=== PATIENT | male | born 1970 | race Caucasian/White ===

== ENCOUNTER 2017-09-27 14:52 | Inpatient (IN) | payer OTHER ==
[~2017-09-27] VITALS: Ht 177.8 cm; Wt 81.3 kg
[~2017-09-27 14:52] MED LIST: AMLO10TA PO; CLON0.1T42 PO; FURO-570 PO; GABA300C PO; HYDR-3638 PO; LANTUS SUBQ; METO5SOL19 PO; NITR0.4T2 SL; PANT40EC PO; TRAM50TA1 PO
[2017-09-27 15:05] VITALS: BP 184/107
--- NOTE | 2017-09-27 15:24 | NUR ---
PATIENT BIBA TO BED 10
[2017-09-27] MEDS ORDERED: NACL 0.9% 500 ML IV ONE (15:25)
--- NOTE | 2017-09-27 15:39 | NUR ---
PATIENT PRESENTS TO ED WITH THE CHIEF C/O OFEPISODE OF SYNCOPE, NAUSEA NAD VOMITING . . DENIES N/V/D AT THIS TIME; SKIN IS PINK/WARM/DRY; AAOX4 WITH EVEN AND STEADY GAIT; HR EVEN AND REGULAR; PT HAS TEM[ERATURE OF 100.3 DEGREE F. DENIES CP, OR COUGH AT THIS TIME; PATIENT STATES PAIN OF 0/10 AT THIS TIME; PATIENT POSITIONED FOR COMFORT; HOB ELEVATED; BEDRAILS UP X2; BED DOWN. ER MD MADE AWARE OF PT STATUS.
--- NOTE | 2017-09-27 15:42 | NUR ---
CHEST X RAY DONE.
[2017-09-27] MEDS ORDERED: DILTIAZEM 25 MG/5 ML VIAL IVP ONE (15:50)
--- NOTE | 2017-09-27 16:03 | NUR ---
LABS AT BEDSIDE FOR BLOOD DRAW.
[2017-09-27] MEDS ORDERED: ACETAMINOPHEN EXTRA STRENGTH 500 MG TAB PO ONE (16:20)
[2017-09-27 16:21] LABS: BASOPHILS # (AUTO) 0.1 K/uL (0.00-0.22); BASOPHILS % (AUTO) 0.7 % (0.0-2.0); EOSINOPHILS # (AUTO) 0.1 K/uL (0-0.4); EOSINOPHILS % (AUTO) 0.7 % (0.0-4.0); HEMATOCRIT 40.7 % (36-52); LYMPHOCYTES # (AUTO) 0.7 K/uL (2.0-11.5); LYMPHOCYTES % (AUTO) 4.9 % (20.5-51.1); MEAN CORPUSCULAR HEMOGLOBIN 28 pg (27-31); MEAN CORPUSCULAR HGB CONC 32 g/dL (33-37); MEAN CORPUSCULAR VOLUME 87 fL (80-94); MONOCYTES % (AUTO) 7.1 % (1.7-9.3); NEUTROPHILS # (AUTO) 12.8 K/uL (1.8-7.7); NEUTROPHILS % (AUTO) 86.6 % (42.2-75.2); PLATELET COUNT (AUTO) 369 K/uL (140-450); RED BLOOD CELL COUNT(AUTO) 4.68 MIL/uL (4.20-6.10); RED CELL DISTRIBUTION WIDTH 15.6 % (11.6-13.7); WHITE BLOOD COUNT (AUTO) 14.7 K/uL (4.8-10.8)
[2017-09-27 16:32] LABS: ALBUMIN 3.7 g/dL (3.4-5.0); ANION GAP 23.2 (8-16); CARBON DIOXIDE 27.2 mmol/L (21-32); TOTAL BILIRUBIN 0.9 mg/dL (0.0-1.0)
[2017-09-27 16:35] LABS: POTASSIUM 6.4 mmol/L (3.5-5.1)
[2017-09-27 16:36] LABS: CREATININE 10.7 mg/dL (0.7-1.3)
[2017-09-27] MEDS: PIPERACILLIN/TAZOBACTAM 3.375 GM in DEXTROSE 5% 50 ML IV ONE ×2 (16:45→18:08)
[2017-09-27] MEDS ORDERED: DEXTROSE 50% 50 ML SYR IVP ONE (16:45)
[2017-09-27] MEDS ORDERED: SODIUM POLYSTYRENE 15 GM/60 ML UDBTL PO ONE (16:45)
[2017-09-27] MEDS ORDERED: ALBUTEROL 0.083% 2.5 MG/3 ML NEBU INH ONE (16:45)
[2017-09-27] MEDS ORDERED: VANCOMYCIN 1,000 MG in DEXTROSE 5% 250 ML IV ONE (16:45)
[2017-09-27] MEDS ORDERED: INSULIN REGULAR, HUMAN 100 UNIT/ML VIAL SUBQ ONE (16:45)
[2017-09-27] MEDS ORDERED: VANCOMYCIN 1,000 MG VIAL ONE (16:49)
[2017-09-27] MEDS ORDERED: PIPERACILLIN/TAZOBACTAM 3.375 GM VIAL IV ONE (16:49)
[2017-09-27] MEDS ORDERED: ACETAMINOPHEN 325 MG TAB PO PRN (17:00)
[2017-09-27] MEDS ORDERED: HYDROcodone/APAP 7.5/325 MG 1 TAB PO PRN (17:00)
[2017-09-27] MEDS ORDERED: MORPHINE SULFATE 2 MG/ML SYR IVP PRN (17:00)
[2017-09-27] MEDS ORDERED: DOCUSATE SODIUM 100 MG GELCAP PO PRN (17:00)
[2017-09-27] MEDS ORDERED: ONDANSETRON 4 MG/2 ML VIAL IM/IVP PRN (17:00)
--- NOTE | 2017-09-27 17:04 | NUR ---
TX ADMINISTERED. PT TOLERATED TX WELL. NO ADVERSE SIDE EFFECTS.
--- NOTE | 2017-09-27 17:25 | NUR ---
RT AT BEDSIDE ATTEMPTING TO COLLECT ABG---HHN HAS BEEN COMPLETED
--- NOTE | 2017-09-27 17:27 | NUR ---
PT IS REQUESTING TO ALLOW TO MICTURATE BEFORE ATTEMPING STRAIGHT CATH
[2017-09-27] MEDS ORDERED: SEVE0.8P PO (17:34)
[2017-09-27] MEDS ORDERED: CLOP75TA26 PO (17:34)
[2017-09-27] MEDS ORDERED: LOSA100T1 PO (17:34)
[2017-09-27] MEDS ORDERED: ASPI81EC98 PO (17:34)
[2017-09-27] MEDS ORDERED: LON2.5 PO (17:34)
[2017-09-27] MEDS ORDERED: ALBU0.0912 IH (17:34)
[2017-09-27] MEDS ORDERED: CARV25TA PO (17:34)
[2017-09-27] MEDS ORDERED: ATOR40TA40 PO (17:34)
[2017-09-27] MEDS ORDERED: FLUO10CA21 PO (17:34)
--- NOTE | 2017-09-27 17:35 | NUR ---
RESULTS GIVEN TO DR. ERICKSON NO CHANGES MADE AT THIS TIME.
[2017-09-27] MEDS ORDERED: NACL 0.9% 500 ML IV SCH (17:40)
[2017-09-27 17:49] LABS: APPEARANCE,URINE CLEAR (CLEAR); BILIRUBIN,URINE NEGATIVE (NEGATIVE); BLOOD, URINE 1+ (NEGATIVE); COLOR,URINE YELLOW (YELLOW); LEUKOCYTE ESTERASE ,URINE NEGATIVE (NEGATIVE); NITRITE, URINE NEGATIVE (NEGATIVE); PH,URINE 7.5 (5.0-9.0); UGLUCOSE 2+ (NEGATIVE)
[2017-09-27 18:00] VITALS: BP 136/91
[2017-09-27] MEDS ORDERED: NITROGLYCERIN 0.4 MG TAB SL PRN (18:00)
--- NOTE | 2017-09-27 18:01 | NUR ---
Pt report given to JAMES GOODMAN. Transfer of care at this timE TO ICU RM 2
--- NOTE | 2017-09-27 18:01 | NUR ---
ADMITTED PATIENT FROM ED PER IVET. REPORT GIVEN BY ED RN. PATIENT IS AAOX4. ABLE TO FOLLOW COMMANDS. SKIN WARM TO TOUCH WNL, MULTIPLE OPEN WOUNDS TO LEFT MEDIAL MALLEOLAR, RLE AND R HALLUX, NO COMPLAINTS OF PAIN MADE DURING ASSESSMENT. PICTURES OBTAINED AND PLACED IN CHART. RAC G20 PERIPHERAL IV, PATENT AND INTACT. URINE AND BOWEL CONTINENT, ABLE TO MAKE HIS NEEDS KNOWN. LEFT ARM AV SHUNT NOTED. BED AT LOWEST POSSIBLE POSITION. MRSA SCREEN COLLECTED. CALL LIGHT WITHIN REACH. SAFETY MEASURES IN PLACE. WILL CONTINUE TO MONITOR PATIENT.
[2017-09-27 18:02] LABS: BARBITURATE, URINE NEG. ng/ml (NEG <=200); BENZODIAZEPINE, URINE NEG. ng/mL (NEG <=200); CANNABINOID, URINE NEG. ng/mL (NEG <=50); COCAINE, URINE NEG. ng/mL (NEG <=300); OPIATE, URINE NEG. ng/mL (NEG <=2000); PHENCYCLIDINE SCREEN,URINE NEG. ng/mL (NEG <=25)
[2017-09-27 18:03] LABS: RBC,URINE 0-5 (RARE) /HPF (0-5); WBC,URINE 0-5 (RARE) /HPF (0-5)
[2017-09-27] MEDS ORDERED: VANCOMYCIN 1GM/DEXT 5% PREMIX 200 ML IV SCH (18:05)
--- NOTE | 2017-09-27 18:05 | NUR ---
UA COLLECTED AND SENT TO LAB
[2017-09-27 18:12] LABS: PROTHROMBIN TIME 11.3 secs (10.8-13.4)
[2017-09-27 18:21] LABS: CHOL/HDL RATIO 4.1 (1-4.5); FREE T4 (FREE THYROXINE) 1.18 ng/dL (0.76-1.46); MAGNESIUM 2.5 mg/dL (1.8-2.4); PHOSPHORUS 7.9 mg/dL (2.5-4.9); THYROID STIMULATING HORMONE 1.31 uIU/mL (0.34-3.74)
[2017-09-27] MEDS ORDERED: INSULIN LISPRO SLIDING SCALE 100 UNITS/ML VIAL SUBQ PRN (18:25)
--- NOTE | 2017-09-27 19:30 | NUR ---
CALLED ROBERT ORTIZ TO FOLLOW UP DIALYSIS, ROBERT SAID THAT THE NURSE IS IN [place] RIGHT NOW AND SHE WILL BE HERE SOON SHE'S DONE THERE.
--- NOTE | 2017-09-27 19:30 | NUR ---
RECEIVED REPORT FROM MORNING NURSE, PT IS AWAKE, AAOX4, VERBALLY RESPONSIVE, ABLE TO MAKE NEEDS KNOWN. PT ON O2 AT 6L/M VIA NC WITH O2 SAT 99% NOTED. BILATERAL LUNG SOUND DIMINISHED NOTED. PERIPHERAL LINE TO RIGHT AC 20 WITH NS 15ML/HR. LEFT UPPER ARM AV SHUNT NOTED. MULTIPLE ULCERS TO LEFT MEDIAL MALLEOLAR, RLE AND R HALLUX. DENIES PAIN AT THIS TIME. BED AT LOWEST POSSIBLE POSITION. CALL LIGHT WITHIN REACH. SAFETY MEASURES IN PLACE. WILL CONTINUE TO MONITOR PATIENT.
[2017-09-27 20:00] VITALS: BP 163/106
[2017-09-27] MEDS ORDERED: LORazepam 2 MG/ML VIAL IM/IVP PRN (20:10)
--- NOTE | 2017-09-27 20:10 | NUR ---
PT' FAMILY MEMBERS AT BEDSIDE, FAMILY MEMBERS REPORTED TO THE NURSE PT GETTING ANXIOUS AND RESTLESSNESS. NOTIFIED TO DR. ANDERSON, RECEIVED ATIVAN ORDER.
[2017-09-27] MEDS: BLOOD GLUCOSE MONITORING 1 DEV DEV FS SCH (20:43)
[2017-09-27] MEDS ORDERED: METOCLOPRAMIDE 10 MG/10 ML SYRP UDC PO PRN ×2 (21:00)
[2017-09-27] MEDS ORDERED: METOCLOPRAMIDE 10 MG/10 ML SYRP UDC PO SCH (21:00)
[2017-09-27] MEDS ORDERED: PIPERACILLIN/TAZOBACTAM 2.25 GM in DEXTROSE 5% 50 ML IV SCH (21:00)
--- NOTE | 2017-09-27 21:33 | NUR ---
CALLED ROBERT ORTIZ, FOLLOW UP WHAT TIME IS DIALYSIS NURSE BE HERE, ROBERT SAID THAT SHE WILL CALL ME BACK.
--- NOTE | 2017-09-27 21:40 | NUR ---
HEMODIALYSIS NURSE AT BEDSIDE, DIALYSIS STARTED AT THIS TIME. BP 152/91 NOTED, NO ACUTE DISTRESS NOTED. WILL CONTINUE TO MONITOR.
[2017-09-27 22:00] VITALS: BP 185/113
[2017-09-28] VITALS (13 sets, daily range): BP systolic 86–165; BP diastolic 48–132
--- NOTE | 2017-09-28 01:10 | NUR ---
RECEIVED REPORT FROM DIALYSIS NURSE, 3.3L OF FLUID REMOVED FROM THE PT. HYPERTENSIVE. WILL GIVE MEDICATIONS.
--- NOTE | 2017-09-28 02:00 | NUR ---
ADMINISTERED SCHEDULED MEDICATION, PT TOLERATED WELL. SR ON THE MONITOR. WILL CONTINUE TO MONITOR.
[2017-09-28] MEDS: cloNIDine 0.1 MG TAB PO SCH ×2 (02:04→08:25)
[2017-09-28] MEDS: CARVEDILOL 12.5 MG TAB PO SCH ×2 (02:04→08:26)
[2017-09-28] MEDS: hydrALAZINE 25 MG TAB PO SCH ×2 (02:05→08:26)
--- NOTE | 2017-09-28 04:20 | NUR ---
CT HEAD W/O CONTRAST TAKEN FROM CT ROOM, PT TOLERATED WELL. NO ACUTE DISTRESS NOTED DURING THE PROCEDURE. WILL FOLLOW UP THE RESULT.
--- NOTE | 2017-09-28 06:10 | NUR ---
PT IS IN ASLEEP, AROUSABLE TO VOICE. NO ACUTE DISTRESS NOTED. SR ON THE MONITOR. DENIES PAIN. WILL CONTINUE TO MONITOR.
[2017-09-28 06:21] LABS: T4 (THYROXINE) 7.7 ug/dL (4.5-12.0)
[2017-09-28 06:24] LABS: BASOPHILS # (AUTO) 0.1 K/uL (0.00-0.22); BASOPHILS % (AUTO) 1.8 % (0.0-2.0); EOSINOPHILS # (AUTO) 0.1 K/uL (0-0.4); EOSINOPHILS % (AUTO) 1.8 % (0.0-4.0); HEMATOCRIT 35.3 % (36-52); HEMOGLOBIN 11.5 g/dL (12.0-18.0); LYMPHOCYTES # (AUTO) 0.9 K/uL (2.0-11.5); LYMPHOCYTES % (AUTO) 10.6 % (20.5-51.1); MEAN CORPUSCULAR HEMOGLOBIN 28 pg (27-31); MEAN CORPUSCULAR HGB CONC 33 g/dL (33-37); MEAN CORPUSCULAR VOLUME 86 fL (80-94); MONOCYTES # (AUTO) 0.9 K/uL (0.8-1.0); NEUTROPHILS % (AUTO) 74.8 % (42.2-75.2); PLATELET COUNT (AUTO) 268 K/uL (140-450); RED BLOOD CELL COUNT(AUTO) 4.09 MIL/uL (4.20-6.10); RED CELL DISTRIBUTION WIDTH 15.6 % (11.6-13.7)
[2017-09-28] MEDS: BLOOD GLUCOSE MONITORING 1 DEV DEV FS SCH ×3 (07:00→15:11)
[2017-09-28 07:08] LABS: PROTHROMBIN TIME 12.6 secs (10.8-13.4)
[2017-09-28 07:15] LABS: ANION GAP 14.7 (8-16); POTASSIUM 3.7 mmol/L (3.5-5.1)
--- NOTE | 2017-09-28 07:20 | NUR ---
RECEIVED A REPORT FROM MAXINE SOTOMAYOR. PATIENT IS AAOX4. DENIES ANY PAIN OR DISCOMFORT AT THIS TIME. RESPIRATION ARE EVEN AND UNLABORED. ON ROOM AIR. SKIN WARM TO TOUCH. PERIPHERAL IV LINE TO RT AC AND PATENT&INTACT. MULTIPLE SKIN LESION TO BILATERAL UPPER/LOWER EXTREMITIES. SINUS RHYTHM ON THE MONITOR. SAFETY PRECAUTION, BED IN LOW POSITION, CALL LIGHT WITHIN REACH. WILL CONTINUE TO MONITOR. Addendum: 09/28/17 at 0855 by Luis Fernando Espino RN ADDITIONAL DOCUMENTATION OF INITIAL ASSESSMENT TO AV SHUNT TO LEFT ARM. BRUIT AND THRILL NOTED. Addendum: 09/28/17 at 0951 by Luis Fernando Espino RN CORRECTION OF DOCUMENTATION TO PATIENT IS ON O2 2L/MIN VIA N/C.
[2017-09-28 07:24] LABS: CREATININE 6.3 mg/dL (0.7-1.3)
--- NOTE | 2017-09-28 07:30 | NUR ---
REPORT GIVEN TO MORNING RN.
[2017-09-28 07:32] LABS: ALBUMIN 3.2 g/dL (3.4-5.0); ANION GAP 16.4 (8-16); ASPARTATE AMINOTRANSFERASE 15 U/L (15-37); CARBON DIOXIDE 30.4 mmol/L (21-32); CHLORIDE 95 mmol/L (98-107); GFR ARICAN-AMERICAN 12 mL/min (>90); GLUCOSE 135 mg/dL (74-106); LIPASE 463 U/L (73-393); MAGNESIUM 2.1 mg/dL (1.8-2.4); POTASSIUM 3.8 mmol/L (3.5-5.1); SODIUM SERUM 138 mmol/L (136-145); UREA NITROGEN, BLOOD 44 mg/dL (7-18)
--- NOTE | 2017-09-28 07:40 | NUR ---
RESIDENT GROUP IN TO SEE PATIENT AND MADE AWARE OF ABNORMAL LAB RESULT INCLUDING CREATININE LEVEL. WILL CONTINUE TO MONITOR AND FOLLOW UP ON ORDERS.
[2017-09-28 07:55] LABS: CREATININE 6.3 mg/dL (0.7-1.3)
--- NOTE | 2017-09-28 08:00 | NUR ---
PATIENT IS ON NPO EXCEPT MEDICATION AND CLARIFIED ALL MEDICATION INCLUDING INSULIN TO BE GIVEN WITH DR. SOTO. WILL CONTINUE TO MONITOR AND FOLLOW UP ON ORDERS.
[2017-09-28] MEDS: GABAPENTIN 300 MG CAP PO SCH ×3 (08:27→16:42)
--- NOTE | 2017-09-28 08:40 | NUR ---
PATIENT IS ON ECHOCARDIOGRAM AT BEDSIDE. WILL CONTINUE TO MONITOR.
[2017-09-28 08:57] LABS: HEPATITIS A ANTIBODY IGM Negative (Negative); HEPATITIS B CORE AB TOTAL Negative (Negative); HEPATITIS B SURFACE ANTIBODY Reactive (.); HEPATITIS B SURFACE ANTIGEN Negative (Negative)
[2017-09-28] MEDS ORDERED: BACITRACIN ZINC/POLYMYXIN B OINT 30 GM TUBE TP SCH ×2 (09:00→21:00)
[2017-09-28] MEDS ORDERED: FLUoxetine 10 MG CAP PO SCH (09:00)
[2017-09-28] MEDS ORDERED: CLOPIDOGREL 75 MG TAB PO SCH ×2 (09:00)
[2017-09-28] MEDS ORDERED: FUROSEMIDE 40 MG TAB PO SCH (09:00)
[2017-09-28] MEDS ORDERED: MINOXIDIL 2.5 MG TAB PO SCH (09:00)
[2017-09-28] MEDS ORDERED: PIPER/TAZO 2.25GM/D5W PREMIX 50 ML IV SCH (09:00)
[2017-09-28] MEDS ORDERED: INSULIN LANTUS 100 UNITS/ML 10 ML VIAL SUBQ SCH ×2 (09:00→17:00)
[2017-09-28] MEDS ORDERED: ECOTRIN 81 MG TABEC PO SCH (09:00)
[2017-09-28] MEDS ORDERED: amLODIPine 5 MG TAB PO SCH (09:00)
[2017-09-28] MEDS ORDERED: PANTOPRAZOLE 40 MG TABEC PO SCH (09:00)
--- NOTE | 2017-09-28 10:32 | NUR ---
PATIENT HAS BEEN SCREENED AND CATEGORIZED HIGH NUTRITION RISK. PATIENT WILL BE SEEN WITHIN 1-2 DAYS OF ADMISSION. 09/28/17 - 09/29/[address]
[2017-09-28] MEDS: ATORVASTATIN 80 MG TAB PO SCH ×2 (10:54→11:19)
--- NOTE | 2017-09-28 11:12 | NUR ---
DR. BURKS AND DR. SOTO IN TO SEE PATIENT AND PATEINT NOTED BP 87/55. DR. BURKS STATED THAT BECAUSE PATIENT WAS TAKEN MULTIPLE BP MEDICATIONS IN THE MORNING AND CONTINUE TO MONITOR AT THIS TIME. PATIENT'S MOTHER AND DAUGHTER AT BEDSIDE.
[2017-09-28] MEDS ORDERED: HEPARIN PER PHARMACY MC PRN (11:20)
--- NOTE | 2017-09-28 11:20 | NUR ---
EKG DONE AT BEDSIDE BY RT AND NOTED SINUS RHYTHM WITH PAC AND DR. BURKS AWARE OF IT. WILL FOLLOW UP ON ORDERS.
[2017-09-28] MEDS ORDERED: hePARIN / DEXT 5% PREMIX 250 ML IV SCH (11:25)
[2017-09-28] MEDS ORDERED: DEXTROSE 50% 50 ML SYR IVP ONE (11:36)
--- NOTE | 2017-09-28 11:42 | NUR ---
BLOOD SUGAR NOTED 48 AND PT IS LETHARGIC AT THIS TIME. DR. SOTO IN TO SEE AND D50% 50ML IV GIVEN ORDERED.
--- NOTE | 2017-09-28 11:58 | NUR ---
RECHECKED BLOOD SUGAR 151 , BP 86/52 NOTED HOWEVER PATIENT IS STILL LETHARGIC AND UNABLE TO GIVE LIPITOR SCHEDULED MEDICATION AT THIS TIME. DR. SOTO AWARE OF IT. FAMILY STILL AT BEDSIDE AND GIVEN AN UPDATE BY DR. SOTO ABOUT PATIENT'S CONDITION. HEPARIN IV DRIP STARTED ORDERED AND WILL FOLLOW UP ORDERS.
--- NOTE | 2017-09-28 12:15 | NUR ---
FAXED INITIAL REVIEW TO [facility] [phone] PHONE ALHAJI ElizondoAlfredo [phone]. CALLED NEISHA EARLIER AND SPOKE WITH RICA AND SHE INFORMED ME THAT CM WILL BE ALHAJI Elizondo. RECEIVED AN ORDER FROM DR. SOTO THAT THIS PATIENT NEEDED TRANSFER TO [facility]. I CALLED NEISHA AND LEFT A MESSAGE WITH ALHAJI.' I CALLED NANCY, FROM [facility], RUG CLEANER HELPER. AT [phone]. SHE SAID TO TRY ANY FACILITY AND SHE WOULD DO THE AUTH. I CALLED [facility] AND SPOKE WITH NAYA AND GAVE HIM THE INFORMATION. HE PUT ME TO EILAN ,COORDINATOR, AND SHE SAID THAT THE HOSPITALIST TODAY WAS DR MANE,[phone] AND THAT OUR DRAlfredo NEEDED TO CALL HIM. I GAVE THE PHONE NUMBER TO DR. SOTO. ELIAN TOLD ME CALL THE TAKER AWAY, SYD, [phone]. SHE SAID SHE WOULD BE ABLE TO MAKE A BED FOR THIS PATIENT AFTER RECEIVING THE ACCEPTING PHYSICIAN. SHE SAID TO FAX DEMOGRAFICS TO ADMITTING AT [phone]. SENT FACE SHEET, H&P AND FACE SHEET.
--- NOTE | 2017-09-28 12:30 | NUR ---
WOUND CARE EVALUATION NOTE REASON FOR EVALUATION: BLE LESIONS COMPLETE SKIN ASSESSMENT DONE ON ON THIS 47 Y/O MALE ADMITTED TO [facility] AFTER AN ACUTE SYNCOPAL EPISODE. PAST MEDICAL HX INCLUDE ESRD, DM, AND HTN. ALL ABOVE INFORMATION WAS OBTAINED FROM THE ADMISSION H&P. PATIENT IS LETHARGIC AT THIS TIME AND IS UNABLE TO PROVIDE HX. PATIENT'S DAUGHTER PRESENT AT BEDSIDE. PER PATIENT'S DAUGHTER, PATIENT COMPLAINS OF ITCHINESS IN HIS LOWER EXTREMITIES AND WOULD SCRATCH THEM. MULTIPLE DRY SCABS NOTED TO BLE. PATIENT HAS HX OF LEFT BIG TOE AMPUTATION. LACERATION NOTED TO THE RIGHT BIG TOE WITH UNKNOWN ORIGIN. DRY SKIN NOTED TO BLE, NO HAIR GROWTH WITH BILATERAL PEDAL PULSES PRESENT. PATIENT NEEDS MAX ASSISTANCE WITH TURNING AT THIS TIME. INITIAL PLAN OF CARE AND PRESSURE PREVENTATIVE MEASURES DISCUSSED WITH PRIMARY RN. INTEGUMENTARY: LEFT HAND SKIN TEAR WITH SCANT DRAINAGE WITH MEASUREMENTS 1CM X 1CM X 0.1 CM RIGHT BIG TOE WOUND WITH MEASUREMENTS 0.8CM X 2.5CM X 0.2CM WOUND BED RED WITH SCAN SANGUINOUS DRAINAGE RECOMMENDATIONS: - COVER LEFT HAND SKIN TEAR WITH VERSATEL. CHANGE Q7DAYS AND PRN - CLEANSE BLE WITH MILD SOAP AND WATER, PAT DRY, APPLY HYDRAGUARD BID AND PRN WITH SOILING. LEAVE OPEN TO AIR - CLEANSE RIGHT BIG TOE WOUND WITH NS, PAT DRY. APPLY SKINTEGRITY HYDROGEL. COVER WITH OPTIFOAM OR STRATOSORB DRESSING. CHANGE DRESSING Q3DAYS AND PRN WITH SOILING - TURN AND REPOSITION PATIENT Q2H - OFFLOAD BILATERAL HEELS - KEEP SKIN CLEAN AND DRY AT ALL TIMES RECOMMENDATIONS DISCUSSED WITH PRIMARY RN WILL FOLLOW UP PATIENT Q 7 -10 DAYS AND PRN. PLEASE CONTACT WOUND CARE NURSE FOR ANY CONCERNS AND CHANGE IN WOUND CONDITION
--- NOTE | 2017-09-28 12:52 | NUR ---
PATIENT IS STILL LETHARGIC AND UNABLE TO FOLLOW COMMANDS. HOLD PO MEDICATION AT THIS TIME AND DR. SOTO AWARE OF IT.
[2017-09-28 12:57] LABS: PROTHROMBIN TIME 12.3 secs (10.8-13.4)
--- NOTE | 2017-09-28 12:58 | NUR ---
RECEIVED A CALL FROM ALHAJI FROM [facility]. THE AUTH FOR [facility] IS [id number]. THE AUTH FOR TRANSPORT IS THE SAME .
--- NOTE | 2017-09-28 13:16 | NUR ---
RECEIVED CRITICAL PTT RESULT 122.[address] SOTO AWARE OF IT[address] VERIFIED THE DOSE OF HEPARIN DRIP WITH PHARMACIST PER PROTOCOL ORDERED AND PHARMACIST STATED THAT CONTINUE WITH CURRENT RATE OF HEPARIN DRIP AT THIS TIME AND REPEAT PTT LAB TEST AT 1800. WILL CONTINUE TO MONITOR AND FOLLOW UP ON ORDERS.
--- NOTE | 2017-09-28 13:18 | NUR ---
DAUGHTER AND MOTHER OF PATIENT AT BEDSIDE.
--- NOTE | 2017-09-28 13:19 | NUR ---
CALLED [facility] AND SPOKE WITH ODALIS, [phone]. NO BEDS.
--- NOTE | 2017-09-28 13:27 | NUR ---
RECEIVED CRITICAL LAB RESULT TROPONIN LEVEL 0.[address] BRITTANY HUNT.
--- NOTE | 2017-09-28 14:00 | NUR ---
PATIENT RETURNED FROM CT SCAN OF HEAD AND DR. SIDHU IN TO SEE PATIENT. WILL FOLLOW UP ON ORDERS.
[2017-09-28 14:33] LABS: PROTHROMBIN TIME 12.1 secs (10.8-13.4)
--- NOTE | 2017-09-28 14:38 | NUR ---
INSERTED CENTRAL LINE TO RT IJ TRIPLE LUMEN BY DR. SOTO AT BEDSIDE AND IT WAS SUCCESSFUL. CXR IN HERE TO VERIFY CENTRAL LINE PLACEMENT. DR. LIMON, NEPHRO IN TO SEE PATIENT. WILL FOLLOW UP ON ORDERS.
[2017-09-28] MEDS: DEXTROSE 50% 50 ML SYR IVP PRN ×2 (15:10→17:30)
--- NOTE | 2017-09-28 15:10 | NUR ---
PT'S BLOOD SUGAR 18. DR. LIMON AND DR. SOTO IN THE ICU AND MADE AWARE. ORDER RECEIVED.
--- NOTE | 2017-09-28 15:11 | NUR ---
2 AMPS OF 50% DEXTROSE GIVEN ORDERED BY IN THE UNIT.
--- NOTE | 2017-09-28 15:20 | NUR ---
RECHECKED BLOOD SUGAR 217. PT IS STILL LETHARGIC AT THIS TIME. FAMILY AT BEDSIDE. WILL CONTINUE TO MONITOR.
--- NOTE | 2017-09-28 15:36 | NUR ---
BP 86/55, HR [address] SOTO AWARE OF IT.
[2017-09-28] MEDS ORDERED: NACL 0.9% 250 ML IV ONE (15:45)
--- NOTE | 2017-09-28 15:45 | NUR ---
SPOKE EARLIER WITH TY FROM . SHE SAID AT PRESENT THEY CANNOT TAKE THIS PATIENT UNTIL THEY GET a PORTAL ADMINISTRATOR . SHE SAID AT PRESENT THEY DO NOT HAVE A BED. I INFORMED DR SOTO. I CALLED BACK AND SPOKE WITH SYD, ALMOND HULLER, PHONE [phone]. SHE SAID SHE SPOKE WITH THE HOSPITALIST DR. ELI AND HE IS TRYING TO GET A PORTAL ADMINISTRATOR. SYD SAID IF THEY GET A PORTAL ADMINISTRATOR SHE WILL TRY AND GET A BED. AT PRESENT NO BED. I GAVE HER THE PHONE NUMBER TO THE ICU. I CALLED [facility] AND FAXED INQUIRY TO THEM. I CALLED [facility] AND SPOKE WITH ODALIS. SHE SAID TO FAX THE FACE SHEET, ORDER AND H&P TO HER AT [phone]
--- NOTE | 2017-09-28 15:46 | NUR ---
CXR RESULT REPORTED TO DR. SOTO.
--- NOTE | 2017-09-28 16:02 | NUR ---
DR. SOTO CAME AND ADJUSTED THE CENTRAL LINE BASED ON CXT RESULT AND STATED THAT IT IS OKAY TO USE CENTRAL LINE AT THIS TIME. STARTED IV NORMAL SALINE 250ML BOLUS ORDERED FOR LOW BP. WILL CONTINUE TO MONITOR AN D FOLLOW UP ON ORDERS.
--- NOTE | 2017-09-28 16:05 | NUR ---
FAXED INQUIRY TO [facility] FAX [phone] PHONE [phone]
[2017-09-28] MEDS ORDERED: DEXT 5% / NACL 0.45% 500 ML IV SCH (16:25)
--- NOTE | 2017-09-28 16:42 | NUR ---
PATIENT IS LETHARGIC AND UNABLE TO FOLLOW COMMANDS. DR. SOTO STATED THAT HOLD PO MEDICATION AT THIS TIME UNTIL PATIENT IS AWAKE AND ABLE TO SWALLOW MEDICATION. WILL FOLLOW UP ON ORDERS.
--- NOTE | 2017-09-28 16:48 | NUR ---
RECEIVED A CALL FROM ODALIS FROM [facility]. SHE WANTS OUR DOCTOR TO CALL THE END POLISHER. DR. BUSTAMANTE, PHONE [phone], OFFICE IS [phone]. DR. SOTO INFORMED. SPOKE WITH ODALIS EARLIER FROM [facility] AND FAXED INQUIRY TO HER. [facility] PHONE [phone].
--- NOTE | 2017-09-28 17:30 | NUR ---
BS NOTED 47 AND D50% 50ML INJECTED ORDERED. DR. SOTO AWARE OF IT.
--- NOTE | 2017-09-28 17:34 | NUR ---
RECEIVED A CALL FROM ODALIS AT [facility]. THEY HAVE ACCEPTED THE PAT[facility]. [facility] [address] Airam BUSTAMANTE. CALL REPORT TO [phone] . [facility] TO STOP IN ER FOR ARM BAND FIRST. I INFORMED . I INFORMED ISAAC RN IN ICU AND GAVE HER THE INFORMATION AND THE AUTH NUMBER FOR TRANSPORT, [id number]. [facility] AND SPOKE TO EDIL IN ADMITTING AND INFORMED HER THAT PATIENT WAS GOING TO [facility]. I CALLED I AND SPOKE WITH FELIPE AND INFORMED HER . I CALLED [facility] AND SPOKE WITH THERESA IN INFORMED HER. I CALLED NANCY FROM [facility] AND INFORMED HER THAT PATIENT WAS GOING TO [facility]. SHE SAID SHE WOULD CONTACT THE CM AT [facility]. I DID LEAVE MESSAGE WITH EFRAIN MANE ABOUT THE TRANSFER.
[2017-09-28] MEDS ORDERED: ASPI-1173 PO (17:44)
[2017-09-28] MEDS ORDERED: GABA-638 PO (17:44)
[2017-09-28] MEDS ORDERED: CLOP75TA26 PO (17:44)
[2017-09-28] MEDS ORDERED: LON2.5 PO (17:44)
[2017-09-28] MEDS ORDERED: HYDR-4420 PO (17:44)
[2017-09-28] MEDS ORDERED: METO5SOL20 PO (17:44)
[2017-09-28] MEDS ORDERED: HEPA500056 IV (17:44)
[2017-09-28] MEDS ORDERED: AMLO5TAB4 PO (17:44)
[2017-09-28] MEDS ORDERED: FLUO-348 PO (17:44)
[2017-09-28] MEDS ORDERED: PANT40EC28 PO (17:44)
[2017-09-28] MEDS ORDERED: Heparin Per Pharmacy MC (17:44)
[2017-09-28] MEDS ORDERED: POLYO TP (17:44)
[2017-09-28] MEDS ORDERED: CARV12.52 PO (17:44)
[2017-09-28] MEDS ORDERED: CLON0.1T42 PO (17:44)
[2017-09-28] MEDS ORDERED: ONDA2SOL45 IM/IVP (17:44)
[2017-09-28] MEDS ORDERED: LIP80 PO (17:44)
--- NOTE | 2017-09-28 17:50 | NUR ---
CALLED [facility] NURSE STATION IN CARDIAC ICU # [phone] TO GIVE A REPORT HOWEVER THEY STATED THAT THE BED IS NOT AVAILABLE UNTIL 1930 TONIGHT AND PRIMARY NURSE WILL CALL ME BACK TO GET A REPORT WHEN SHE IS AVAILABLE. CHARGE NURSE WAS INFORMED AND TRANSPORTATION RESCHEDULED AT [address] BRITTANY HUNT.
--- NOTE | 2017-09-28 18:58 | NUR ---
RECEIVED CALLBACK FROM MAXINE COLE AT [facility] AND REPORT GIVEN.
--- NOTE | 2017-09-28 19:20 | NUR ---
REPORT GIVEN TO MAXINE BUSTAMANTEAERODYNAMICS TEACHERDIRECTOR NURSES' REGISTRY. PATIENT IS AAOX4 AND STABLE.
--- NOTE | 2017-09-28 19:30 | NUR ---
RECEIVED PATIENT ON BED IN SITTING POSITION; AWAKE ALERT AND ORIENTED; HAD JUST FINISHED EATING HIS DINNER AND 2 FAMILY MEMBER AT BEDSIDE. CARDIACSCOPE SHOWS ON SINUS ARNOLDO HR 57-59/MIN. NO ARRHYTHMIAS SEEN. COMMENCING ON IVF D5 1/2 NS AT 10 ML/HR AND ON HEPARIN DRIP AT 850 UNITS/HR VIA CENTRAL LINE ON RIGHT INTERNAL JUGULAR; PATENT AND INTACT. AV SHUNT ON LEFT ARM FOR HD ACCESS. ABDOMEN SOFT, NON TENDER. ABLE MOVE ALL HIS EXTREMITIES. MULTIPLE DRY LESIONS NOTED ON THE EXTREMITIES.
--- NOTE | 2017-09-28 19:50 | NUR ---
ACCUCHECK DONE, IT'S 198. PARAMEDICS HERE TO MENHADEN VESSEL PILOT THE PATIENT AND WILL GO OR FOR DISCHARGE TO CARDIAC ICU OF [facility]. REPORT GIVEN TO FOOD SERVER PERSONNEL.
--- NOTE | 2017-09-28 20:10 | NUR ---
PATIENT DISCHARGED TO [facility] VIA [facility] IN STABLE CONDITION.
[2017-09-29] MEDS ORDERED: ATORVASTATIN 80 MG TAB PO SCH (09:00)
[2017-09-29] MEDS ORDERED: FLUoxetine 20 MG CAP PO SCH (09:00)
[2017-09-29] MEDS ORDERED: cloNIDine 0.1 MG TAB PO PRN (09:00)
== END 2017-09-28 20:10 | disposition short-term general hospital (02) | DRG 280 ==
LOC: MED 14:52 → MIC 17:04
PROVIDERS: ADMIT Student in an Organized Health Care Education/Training Program; ATTEND Student in an Organized Health Care Education/Training Program
PROC: 5A1D70Z Performance of Urinary Filtration, Intermittent, Less than 6 Hours Per Day (ICD-10-PCS; 2017-09-27)
PROC: 02H633Z Insertion of Infusion Device into Right Atrium, Percutaneous Approach (ICD-10-PCS; principal; 2017-09-28)
DX: I21.3 ST elevation (STEMI) myocardial infarction of unspecified site (principal); N17.0 Acute kidney failure with tubular necrosis; J96.01 Acute respiratory failure with hypoxia; D68.59 Other primary thrombophilia; E11.22 Type 2 diabetes mellitus with diabetic chronic kidney disease; E11.40 Type 2 diabetes mellitus with diabetic neuropathy, unspecified; I13.2 Hypertensive heart and chronic kidney disease with heart failure and with stage 5 chronic kidney disease, or end stage renal disease; I50.43 Acute on chronic combined systolic (congestive) and diastolic (congestive) heart failure; G90.9 Disorder of the autonomic nervous system, unspecified; N18.6 End stage renal disease; R65.10 Systemic inflammatory response syndrome (SIRS) of non-infectious origin without acute organ dysfunction; I24.9 Acute ischemic heart disease, unspecified; K31.84 Gastroparesis; E11.51 Type 2 diabetes mellitus with diabetic peripheral angiopathy without gangrene; E83.52 Hypercalcemia; K21.9 Gastro-esophageal reflux disease without esophagitis; F32.9 Major depressive disorder, single episode, unspecified; I16.0 Hypertensive urgency; E11.621 Type 2 diabetes mellitus with foot ulcer; L97.509 Non-pressure chronic ulcer of other part of unspecified foot with unspecified severity; E83.39 Other disorders of phosphorus metabolism; E11.43 Type 2 diabetes mellitus with diabetic autonomic (poly)neuropathy; I25.10 Atherosclerotic heart disease of native coronary artery without angina pectoris; E87.5 Hyperkalemia; Z99.2 Dependence on renal dialysis; Z86.73 Personal history of transient ischemic attack (TIA), and cerebral infarction without residual deficits; Z91.15 Patient's noncompliance with renal dialysis; Z98.61 Coronary angioplasty status; Z79.4 Long term (current) use of insulin; Z91.14 Patient's other noncompliance with medication regimen; Z89.412 Acquired absence of left great toe; Z79.82 Long term (current) use of aspirin; Z79.01 Long term (current) use of anticoagulants; E11.649 Type 2 diabetes mellitus with hypoglycemia without coma
CPT/HCPCS: 36415; 36600; 70450; 71045; 80048; 80053; 80305; 81001; 82140; 82150; 82550; 82803; 82948; 83036; 83605; 83615; 83690; 83735; 83880; 84100; 84436; 84439; 84443; 84479; 84484; 85025; 85610; 85730; 86704; 86706; 86708; 86709; 86803; 87040; 87081; 87086; 87340; 90935; 93005; 93880; 93925; 93970; 94640; 96361; 96374; 97110; 97140; 99285; G0482; J1642; J1644; J1815; J2543; J3370; J3490; J7030; J7613; Q0092